=== PATIENT | female | born 1955 ===

== ENCOUNTER 2018-02-02 07:58 | Day surgery (SDC) | payer OTHER ==
[2018-02-02] MEDS ORDERED: Propofol 10 mg/ml Inj (20 ML) ONE (10:58)
[2018-02-02] MEDS ORDERED: Lactated Ringer's 500 ML IV SCH (11:00)
--- NOTE | 2018-02-02 11:00 | CP.SDSHP ---
Same Day Surgery H & P - History Proposed Procedure: EGD with biopsy Pre-Op Diagnosis: GERD - Previous Medical/Surgical History Cardiac: Hypertension Endocrine/Metabolic: Diabetes Comments: HCV. Hyperlipidemia. Colon Diverticulosis Previous Surgical History: Appendectomy. Carpal Tunnel. Hysterectomy - Allergies Allergies: Allergies aspirin Allergy (Verified 11/07/16 16:59) IV DYE Allergy (Severe, Uncoded 11/07/16 18:59) ANAPHYLAXIS - Current Medications Current Medications: reviewed, per reconciliation - Physical Exam General Appearance: wdwn nad Vital Signs: Vital Signs 02/02/18 02/02/18 08:34 10:51 Temperature 97.1 F L 97.1 F L Pulse Rate 68 68 Respiratory 19 19 Rate Blood Pressure 113/64 113/64 O2 Sat by Pulse 98 98 Oximetry Mental Status: Alert & Oriented x3 Heart: WNL Lungs: WNL GI: WNL - Impression Impression: GERD Pt. Evaluated Today:Candidate for Anesthesia & Procedure: Yes - Date & Time Date: 02/02/18 Time: 11:00 Short Stay Discharge - Short Stay Discharge Admitting Diagnosis/Reason for Visit: GASTRO-ESOPHAGEAL REFLUX DISEASE WITHOUT ESOPHAGIT Disposition: HOME/ ROUTINE
[2018-02-02] MEDS ORDERED: Lidocaine Hydrochloride 5 ML INJ ONE (11:04)
[2018-02-02 11:37] VITALS: TEMP 97.3
[2018-02-02 12:59] VITALS: O2SAT 99
[2018-02-02 13:03] VITALS: BP 108/59; PULSE 61; RESP 14
== END 2018-02-02 12:20 | disposition home or self-care (01) ==
LOC: C.ENDO 07:58
PROVIDERS: ATTEND Internal Medicine Gastroenterology
DX: K21.0 Gastro-esophageal reflux disease with esophagitis (principal); K31.7 Polyp of stomach and duodenum; I10 Essential (primary) hypertension; E78.5 Hyperlipidemia, unspecified; J45.909 Unspecified asthma, uncomplicated
CPT/HCPCS: 43239; 43251; 88305; 88312; 88342; J2704; J7120